=== PATIENT | male | born 1990 | race Two or more races ===

== ENCOUNTER 2016-08-05 20:57 | Emergency (ER) | payer OTHER ==
[~2016-08-05] VITALS: Ht 170.2 cm; Wt 63.5 kg
[2016-08-06 01:57] VITALS: BP 126/78
== END 2016-08-06 02:31 | disposition home or self-care (01) ==
LOC: ER 20:57
DX: J32.9 Chronic sinusitis, unspecified (principal); S50.311A Abrasion of right elbow, initial encounter; R51 Headache; V29.9XXA Motorcycle rider (driver) (passenger) injured in unspecified traffic accident, initial encounter; Y93.89 Activity, other specified; Y99.8 Other external cause status; Y92.39 Other specified sports and athletic area as the place of occurrence of the external cause
CPT/HCPCS: 70450